=== PATIENT | male | born 1970 | race Caucasian/White ===

== ENCOUNTER 2020-09-29 03:15 | Emergency (ER) | payer OTHER ==
--- NOTE | 2020-09-29 04:39 | EDPHYS ---
Physician Documentation [facility] Name: Lucas Morales Age: 50 yrs Sex: Male : 1970 Arrival Date: 09/29/2020 Time: 03:19 Bed 24 Private MD: ED Physician Wojciech Burnette HPI: 09/29 04:11 This 50 yrs old Male presents to ER via Wheelchair with complaints of mary ellen Laceration To Head - BACK. 04:11 The patient has a laceration related to: falling occurred at home. The laceration(s) mary ellen is(are) located on the scalp. Onset: The symptoms/episode began/occurred just prior to arrival. Associated signs and symptoms: The patient has no apparent associated signs or symptoms. The patient has not experienced similar symptoms in the past. Historical: - Allergies: 03:39 NSAIDS; ad5 - Immunization history:: Last tetanus immunization: unknown. - Social history:: Smoking status: unknown. ROS: 04:12 Constitutional: Negative for fever, chills, and weight loss, Eyes: Negative for injury, mary ellen pain, redness, and discharge, ENT: Negative for injury, pain, and discharge, Neck: Negative for injury, pain, and swelling, Cardiovascular: Negative for chest pain, palpitations, and edema, Respiratory: Negative for shortness of breath, cough, wheezing, and pleuritic chest pain, Abdomen/GI: Negative for abdominal pain, nausea, vomiting, diarrhea, and constipation, Back: Negative for injury and pain, : Negative for injury, bleeding, discharge, and swelling, MS/Extremity: Negative for injury and deformity, Skin: Negative for injury, rash, and discoloration, Psych: Negative for depression, anxiety, suicide ideation, homicidal ideation, and hallucinations, Allergy/Immunology: Negative for hives, rash, and allergies, Endocrine: Negative for neck swelling, polydipsia, polyuria, polyphagia, and marked weight changes, Hematologic/Lymphatic: Negative for swollen nodes, abnormal bleeding, and unusual bruising. 04:12 Neuro: Positive for headache. Exam: 04:12 Constitutional: This is a well developed, well nourished patient who is awake, alert, mary ellen and in no acute distress. Eyes: Pupils equal round and reactive to light, extra-ocular motions intact. Lids and lashes normal. Conjunctiva and sclera are non-icteric and not injected. Cornea within normal limits. Periorbital areas with no swelling, redness, or edema. ENT: Nares patent. No nasal discharge, no septal abnormalities noted. Tympanic membranes are normal and external auditory canals are clear. Oropharynx with no redness, swelling, or masses, exudates, or evidence of obstruction, uvula midline. Mucous membranes moist. Neck: Trachea midline, no thyromegaly or masses palpated, and no cervical lymphadenopathy. Supple, full range of motion without nuchal rigidity, or vertebral point tenderness. No Meningismus. Chest/axilla: Normal chest wall appearance and motion. Nontender with no deformity. No lesions are appreciated. Cardiovascular: Regular rate and rhythm with a normal S1 and S2. No gallops, murmurs, or rubs. Normal PMI, no JVD. No pulse deficits. Respiratory: Lungs have equal breath sounds bilaterally, clear to auscultation and percussion. No rales, rhonchi or wheezes noted. No increased work of breathing, no retractions or nasal flaring. Abdomen/GI: Soft, non-tender, with normal bowel sounds. No distension or tympany. No guarding or rebound. No evidence of tenderness throughout. Back: No spinal tenderness. No costovertebral tenderness. Full range of motion. Male : Normal genitalia with no discharge or lesions. Skin: Warm, dry with normal turgor. Normal color with no rashes, no lesions, and no evidence of cellulitis. MS/ Extremity: Pulses equal, no cyanosis. Neurovascular intact. Full, normal range of motion. Neuro: Awake and alert, GCS 15, oriented to person, place, time, and situation. Cranial nerves II-XII grossly intact. Motor strength 5/5 in all extremities. Sensory grossly intact. Cerebellar exam normal. Normal gait. Psych: Awake, alert, with orientation to person, place and time. Behavior, mood, and affect are within normal limits. 04:12 Head/face: Noted is contusion, a laceration(s), that is deep, 9 cm(s), swelling, that is mild. Vital Signs: 03:36 BP 149 / 82; Pulse 95; Resp 16 S; Pulse Ox 97% on R/A; Weight 167.83 kg; Height 5 ft. 8 ad5 in. (172.72 cm); 04:45 BP 118 / 58; Pulse 111; Resp 18 S; Pulse Ox 100% on R/A; ad5 03:36 Body Mass Index 56.26 (167.83 kg, 172.72 cm) ad5 Gini Coma Score: 04:14 Eye Response: spontaneous(4). Verbal Response: oriented(5). Motor Response: obeys mary ellen commands(6). Total: 15. MDM: 03:31 Patient medically screened. mary ellen 04:14 Differential diagnosis: Hematoma on Intracranial bleed- Concussion without LOC. mary ellen vascular injury. Data reviewed: vital signs, nurses notes, radiologic studies, CT scan. 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 Counseling: I had a detailed discussion with the patient and/or guardian regarding: the historical points, exam findings, and any diagnostic results supporting the discharge/admit diagnosis, radiology results. 09/29 03:36 Order name: CT Head C Spine ad5 09/29 04:08 Order name: Dressing - Wound; Complete Time: 04:08 [facility] 09/29 04:08 Order name: Gloves, Sterile; Complete Time: 04:08 mary ellen 09/29 04:08 Order name: Setup Suture Tray; Complete Time: 04:08 mary ellen 09/29 04:49 Order name: Wound dressing; Complete Time: 05:01 mary ellen Administered Medications: 04:45 Drug: Tylenol 1000 mg Route: PO; ad5 05:02 Follow up: Response: No adverse reaction ad5 Disposition Summary: 09/29/20 04:38 Discharge Ordered Location: Home mary ellen Problem: new mary ellen Symptoms: have improved mary ellen Condition: Stable mary ellen Diagnosis - Fall (on) (from) unspecified stairs and steps mary ellen - Laceration without foreign body of other part of head - poterior scalp mary ellen - Unspecified injury of head, initial encounter - head, scalp, s/p fall mary ellen Followup: mary ellen - With: Private Physician - When: 2 - 3 days - Reason: Recheck today's complaints, Continuance of care, Re-evaluation by your physician Discharge Instructions: - Discharge Summary Sheet mary ellen - Head Injury, Adult mary ellen - Fall Prevention in the Home, Adult mary ellen - Laceration Care, Adult, [id number] mary ellen - Head Injury, Adult, [id number] mary ellen Forms: - Medication Reconciliation Form mary ellen - Thank You Letter mary ellen - Antibiotic Education mary ellen - Prescription Opioid Use mary ellen Prescriptions: - Cephalexin 500 mg Oral Capsule - take 1 capsule by ORAL route every 6 hours for 7 days; 28 capsule; Refills: 0, mary ellen Product Selection Permitted Signatures: Dispatcher [employer] EDWojciech Penny, Kelby Apodaca MD, cha
--- NOTE | 2020-09-29 04:39 | ER ---
Nurse's Notes [facility] Name: Lucas Morales Age: 50 yrs Sex: Male : 1970 Arrival Date: 09/29/2020 Time: 03:19 Bed 24 Private MD: Diagnosis: Fall (on) (from) unspecified stairs and steps;Laceration without foreign body of other part of head-poterior scalp;Unspecified injury of head, initial encounter-head, scalp, s/p fall Presentation: 09/29 03:36 Chief complaint: Patient states: Pt c/o posterior head pain, lac x 3 s/p mechanical ad5 fall. Pt S.O. reports +LOC and blood thinner use. Pt AAOx3 at this time, speech clear and appropriate, PAREKH with ease. Denies other injury or pain. VSS. Coronavirus screen: At this time, the client does not indicate any symptoms associated with coronavirus-19. Ebola Screen: No symptoms or risks identified at this time. Complicating Factors: blood thinner use. Initial Sepsis Screen: Does the patient meet any 2 criteria? HR > 90 bpm. Does the patient have a suspected source of infection? No. Patient's initial sepsis screen is negative. Risk Assessment: Do you want to hurt yourself or someone else? Patient reports no desire to harm self or others. Onset of symptoms was September 29, 2020 at 02:30. Mechanism of Injury: Fall. 03:36 Method Of Arrival: Wheelchair ad5 03:36 Acuity: ANGUS 3 ad5 Triage Assessment: 03:39 General: Appears in no apparent distress. Behavior is calm, cooperative, appropriate ad5 for age. Pain: Complains of pain in scalp. Injury Description: Laceration sustained to posterior head is clean, x 3 is bleeding a small amount. Historical: - Allergies: 03:39 NSAIDS; ad5 - Immunization history:: Last tetanus immunization: unknown. - Social history:: Smoking status: unknown. Screenin:50 Abuse screen: Denies threats or abuse. Denies injuries from another. Nutritional ad5 screening: No deficits noted. Tuberculosis screening: No symptoms or risk factors identified. Fall Risk Fall in past 12 months (25 points). Secondary diagnosis (15 points) No IV (0 pts). Ambulatory Aid- None/Bed Rest/Nurse Assist (0 pts). Gait- Normal/Bed Rest/Wheelchair (0 pts) Mental Status- Oriented to own ability (0 pts). Total Watkins Fall Scale indicates Low Risk Score (25-44 pts). Fall prevention measures have been instituted. Side Rails Up X 2 Family Present and informed to notify staff if they need to leave bedside As available Patient and Family Educated on Fall Prevention Program and strategies. Assessment: 03:40 General: Appears in no apparent distress. Behavior is calm, cooperative, appropriate ad5 for age. Pain: Complains of pain in posterior head. Neuro: No deficits noted. Level of Consciousness is awake, alert, obeys commands, Oriented to person, place, time, situation, Appropriate for age Moves all extremities. Gait is steady, Speech is normal, Pupils are PERRLA. Cardiovascular: No deficits noted. Capillary refill < 3 seconds Patient's skin is warm and dry. Pulses are all present. Respiratory: No deficits noted. Airway is patent Respiratory effort is even, unlabored, Respiratory pattern is regular, symmetrical. GI: No deficits noted. No signs and/or symptoms were reported involving the gastrointestinal system. Musculoskeletal: Circulation, motion, and sensation intact. Capillary refill < 3 seconds. Injury Description: Pt with laceration x 3 to posterior head s/p mechanical fall. Bleeding controlled upon arrival to ED, pt on blood thinners per S.O. 04:45 Reassessment: Patient appears in no apparent distress at this time. Patient and/or ad5 family updated on plan of care and expected duration. Pain level reassessed. Patient is alert, oriented x 3, equal unlabored respirations, skin warm/dry/pink. Vital Signs: 03:36 BP 149 / 82; Pulse 95; Resp 16 S; Pulse Ox 97% on R/A; Weight 167.83 kg; Height 5 ft. 8 ad5 in. (172.72 cm); 04:45 BP 118 / 58; Pulse 111; Resp 18 S; Pulse Ox 100% on R/A; ad5 03:36 Body Mass Index 56.26 (167.83 kg, 172.72 cm) ad5 Gini Coma Score: 04:14 Eye Response: spontaneous(4). Verbal Response: oriented(5). Motor Response: obeys mary ellen commands(6). Total: 15. ED Course: 03:19 Patient arrived in ED. wm 03:31 Wojciech Burnette MD is Attending Physician. mary ellen 03:35 Kelby Delatorre is Primary Nurse. ad5 03:39 Triage completed. ad5 03:40 Arm band placed on. ad5 03:50 Assist provider with laceration repair using lisset. Set up tray. Performed by Wojciech Burnette MD Patient tolerated well. 03:51 Patient has correct armband on for positive identification. Bed in low position. Call ad5 light in reach. Side rails up X 1. Adult w/ patient. Pulse ox on. NIBP on. Door closed. Noise minimized. Head of bed elevated. 03:51 CT Head C Spine Sent. ad5 03:59 CT Head C Spine In Process Unspecified. EDMS 04:45 Dressings: non-adherent dressing x 2 scalp xena wrap to affected area, pt tolerated well.ad5 05:02 Patient did not have IV access during this emergency room visit. ad5 Administered Medications: 04:45 Drug: Tylenol 1000 mg Route: PO; ad5 05:02 Follow up: Response: No adverse reaction ad5 Outcome: 04:38 Discharge ordered by . mary ellen 05:02 Discharged to home ambulatory, with significant other. ad5 05:02 Condition: stable 05:02 Discharge instructions given to patient, significant other, Instructed on discharge instructions, follow up and referral plans. medication usage, Demonstrated understanding of instructions, follow-up care, medications. 05:02 Patient left the ED. ad5 Signatures: Dispatcher [employer] EDHI Wojciech Burnette MD MD cha Davidson, Andrea ad5 Mellissa Alonso
[2020-09-29] MEDS ORDERED: ACETAMINOPHEN 500 MG TAB ONE (05:11)
[2020-09-29 05:13] VITALS: BP 118/58; O2SAT 100
--- NOTE | 2020-09-29 16:53 | RAD REPORT ---
EXAM DESCRIPTION: 1. CT of the head without contrast 2. CT of the cervical spine without contrast. CLINICAL HISTORY: Head injury, blood thinners COMPARISON: None available TECHNIQUE: Axial CT of the head obtained from the skull apex to the skull base without contrast. Axi al CT images of the cervical spine obtained from the skull base through the thoracic inlet. Sagittal and coronal reformatted images available. This exam was performed according to our departmental dose- optimization program, which includes automated exposure control, adjustment of the mA and/or kV accor ding to patient size and/or use of iterative reconstruction technique. FINDINGS: CT head: No acute intracranial hemorrhage identified. No mass, mass effect, shift of the midline, abnormal ext ra-axial fluid collection or CT evidence of acute ischemic change identified. The ventricular system is unremarkable. No acute abnormalities of the supratentorial white matter, basal ganglia, cerebell um, or brainstem. The visualized paranasal sinuses and the mastoids are clear. No skull fracture identified. Visual ized orbits and globes are unremarkable. Cervical CT: Straightening of the cervical lordosis may be secondary to patient positioning. The atlantoaxial, a tlantodental, and occipitoatlantal intervals are preserved. No fracture identified. Vertebral body height preserved. Prevertebral soft tissues are unremarkable. Mild to moderate multilevel loss of intervertebral disc height with endplate spondylosis, facet arthr opathy, and uncovertebral spurring. Visualized skull base is intact. No fracture of the visualized facial bones. Visualized mastoid air c ells and paranasal sinuses are well aerated. Visualized thyroid is unremarkable. No cervical lymphadenopathy. No pneumothorax in the visualized lung apices. IMPRESSION: 1. No acute intracranial abnormality. 2. No acute fracture or subluxation of the cervical spine. 3. Multilevel degenerative change of the cervical spine. Electronically signed by: Tim Antonio 09/29/2020 4:30 AM CDT Due to temporary technical issues with the PACS/Fluency reporting system, reports are being signed by the in house radiologists without review as a courtesy to insure prompt reporting. The interpreting radiologist is fully responsible for the content of the report.
== END 2020-09-29 05:02 | disposition home or self-care (01) ==
LOC: ER 03:15
PROC: 0JQ00ZZ Repair Scalp Subcutaneous Tissue and Fascia, Open Approach (ICD-10-PCS; principal; 2020-09-29)
DX: S01.01XA Laceration without foreign body of scalp, initial encounter (principal); W10.9XXA Fall (on) (from) unspecified stairs and steps, initial encounter; Y92.009 Unspecified place in unspecified non-institutional (private) residence as the place of occurrence of the external cause; Z88.6 Allergy status to analgesic agent
CPT/HCPCS: 70450; 72125; 99284